=== PATIENT | female | born 1955 | race American Indian/Alaskan Native ===

== ENCOUNTER 2018-06-17 07:51 | Day surgery (SDC) | payer OTHER ==
[2018-06-17] MEDS ORDERED: ECOTRIN PO ONE (08:28)
[2018-06-17] MEDS ORDERED: NACL 0.9% 500 ML 500 ML IV SCH (09:00)
[2018-06-17 09:34] LABS: INR 1.02 (0.87-1.13)
[2018-06-17] MEDS ORDERED: NITROGLYCERIN SYRINGE 3 ML ONE (09:46)
[2018-06-17] MEDS ORDERED: XYLOCAINE 2% INFILTRATI ONE (09:46)
[2018-06-17] MEDS ORDERED: HEPARIN 10,000 UNITS/10 ML ONE (09:46)
[2018-06-17] MEDS ORDERED: CALAN ONE (09:46)
[2018-06-17] MEDS ORDERED: HEPARIN/NS 5000 UNIT/500ML(CATH LAB) 1,000 ML IR ONE (09:46)
[2018-06-17] MEDS ORDERED: SUBLIMAZE ONE (09:47)
[2018-06-17] MEDS ORDERED: VERSED ONE (09:47)
--- NOTE | 2018-06-17 11:03 | Short Stay Summary ---
Short Stay Documentation Date of service: 06/17/18 - History H&P: obtained from office - Allergies and Medications Current Medications: Allergies No Known Allergies Allergy (Verified 06/17/18 08:28) Home Medications Medication Instructions Recorded Confirmed Last Taken Type Carvedilol [Coreg] 3.125 mg PO BID 06/17/18 06/17/18 06/17/18 History 3.125mg Lisinopril/Hydrochlorothiazide 1 tab PO DAILY 06/17/18 06/17/18 06/17/18 History [Zestoretic 10-12.5 mg Tablet] 1 Spironolactone 25 mg PO DAILY 06/17/18 06/17/18 06/17/18 History 25mg Zantac 150 MG TAB 150 mg PO DAILY 06/17/18 06/17/18 06/16/18 History 150mg Active Medications Sodium Chloride (Nacl 0.9% 500 Ml) 500 mls @ 50 mls/hr IV DIRECT RY Stop: 06/17/18 18:59 Last Admin: 06/17/18 09:16 Dose: 50 mls/hr Documented by: - Brief post op/procedure progress note Date of procedure: 06/17/18 Pre-op diagnosis: chf Post-op diagnosis: same Procedure: see report Anesthesia: local Estimated blood loss: none Pathology: none - Disposition Condition at discharge: Good Disposition: [id number] TO HOME OR SELFCARE - Discharge Diagnoses (1) Cardiomyopathy Status: Acute Qualifiers: Cardiomyopathy type: ischemic Qualified Code(s): I25.5 - Ischemic c ardiomyopathy (2) CAD (coronary artery disease) Status: Acute Qualifiers: Coronary Disease-Associated Artery/Lesion type: chilkat artery [place] vs. transplanted heart: chilkat heart Associated angina: with stable angina Qualified Code(s): I25.118 - Atherosclerotic heart disease of chilkat coronary artery with other forms of angina pectoris (3) Hypertension Status: Chronic Qualifiers: Hypertension type: essential hypertension Qualified Code(s): I10 - Essential (primary) hypertension (4) Hyperlipemia, mixed Status: Chronic Short Stay Discharge Plan Activity: advance as tolerated Diet: low fat, low cholesterol, low salt Follow up with: TYLER MENDOZA MD [Primary Care Provider] - 7 Days
--- NOTE | 2018-06-17 11:21 | Cardiac Catherization Report ---
LEFT HEART CATHETERIZATION REFERRING PHYSICIAN: Candelario Busch MD CLINICAL INFORMATION: This is a 63 female with severe cardiomyopathy on echocardiogram here for left heart catheterization to rule out coronary artery disease as cause of cardiomyopathy. DESCRIPTION OF PROCEDURE: The patient was done under moderate sedation, 0.5 mg Versed and 25 mcg fentanyl. Total sedation time was 15 minutes, started at 10:29 a.m., finished at 10:44 a.m. Left heart catheterization performed in the right radial artery, sterile technique, local anesthesia, 6-Egyptian radial sheath inserted. FINDINGS: Left system engaged with JL3.5 catheter. Left main is large and patent, bifurcates to large LAD that is patent from proximally and distally with mild luminal irregularities. Diagonal 1, diagonal 2, diagonal 3 are small caliber vessels that are patent collaterals from left to right collaterals from the septal to the distal RCA. Circumflex is a medium caliber vessel, mid 80% lesion. Ramus is a small to medium caliber vessel that is patent with mild luminal irregularities. OM2 is a [id number] caliber vessel, has a proximal 50% lesion. OM3 is a small to medium caliber vessel that is patent. RCA engaged with JR4, is a large dominant vessel, proximal is patent, mid after an RV marginal branch is 100% noted. LV gram was done in TELUGU and DAVIDSON view shows severe LV dysfunction, EF 15%, LVEDP 20 mmHg, LV is 128. Aortic is 120/78. No gradient across the aortic valve on pullback. 5-Egyptian catheters were taken over guidewire, 6-Egyptian radial sheath discontinued, radial band applied. No hematoma, no bleeding. SUMMARY: Left main patent, LAD patent, circumflex mid 80% with ramus patent, OM1 80% ostial and OM2 patent. Extensive left to right collateralizations noted to the distal RCA with RCA mid 100%. The patient's coronary artery disease is out of proportion to cardiomyopathy. The patient will be treated medically first. Once EF is improved, we will consider PCI of the PORTFOLIO DIRECTOR of the RCA and circumflex. Discussed this in detail with the patient and the patient's family. JOB# [id number] DUNCAN/SYED MAX
[2018-06-17 13:02] VITALS: BP 123/70
== END 2018-06-17 13:30 | disposition home or self-care (01) ==
LOC: CATHLABREC 07:51 → CATH 07:51 → CATHLABREC 13:30
PROVIDERS: ATTEND Internal Medicine
DX: I25.10 Atherosclerotic heart disease of native coronary artery without angina pectoris (principal); I42.8 Other cardiomyopathies; F17.210 Nicotine dependence, cigarettes, uncomplicated; I10 Essential (primary) hypertension; E78.2 Mixed hyperlipidemia; M19.90 Unspecified osteoarthritis, unspecified site; Z90.49 Acquired absence of other specified parts of digestive tract; Z98.890 Other specified postprocedural states; Z79.899 Other long term (current) drug therapy; Z85.89 Personal history of malignant neoplasm of other organs and systems; Z79.01 Long term (current) use of anticoagulants
CPT/HCPCS: 36415; 85610; 85730; 93005; 93010; 93458; 99156; C1894; J1644; J2250; J3010; J7040; Q9967

== ENCOUNTER 2018-07-03 17:28 | Inpatient (IN) | payer OTHER ==
--- NOTE | 2018-07-03 21:36 | Emergency Department Report ---
ED Neuro Deficit HPI - General Chief Complaint: Dizziness Stated Complaint: WEAKNESS/DIZZY Time Seen by Provider: 07/03/18 21:01 Source: patient, EMS (ems notes not available at time of chart dictation), RN notes reviewed, old records reviewed Mode of arrival: Stretcher Limitations: No Limitations - History of Present Illness Initial Comments: Primary care Dr.: Dr. Louis Cardiology: Dr Niall Willams Past medical history: Multivessel ischemic cardiac myopathy, history of left- sided breast cancer, premature ventricular contractions, hypertension, high cholesterol, mitral and tricuspid regurg This is a 63-year-old female who is not known to this provider previously. Patient reports being in her usual state of health today, when after lunch, she develops diaphoresis, lightheadedness, sensation of being unsteady, and generalized weakness. This was a painless event, did not radiate anywhere, lasted for around 30 minutes, and is now resolved. She had a cardiac catheterization last month, and recalls reading discharge instructions which recommended immediate medical evaluation if she experienced diaphoresis. She therefore presents to the emergency room. All of her symptoms are now resolved, and she denies complaints. She denies new or different shortness of breath, leg pain, leg swelling, hematemesis, bright red blood per rectum. -: Sudden Location: ataxia Presenting Symptoms: Absent: Weak/Paralyzed One Side, Sudden, Severe Headache, Blurred/Loss of Vision, Facial Droop/Numbness, Unable to Speak Clearly, Altered Mental Status History of same: No Place: outdoors Severity: moderate Quality: weak Improves With: none Worsens With: none On Anticoagulants: No Context: sudden onset Associated Symptoms: diaphoresis, malise, weakness - Related Data Home Medications: Home Medications Medication Instructions Recorded Confirmed Last Taken Carvedilol [Coreg] 3.125 mg PO BID 06/17/18 06/17/18 06/17/18 3.125mg Lisinopril/Hydrochlorothiazide 1 tab PO DAILY 06/17/18 06/17/18 06/17/18 [Zestoretic 10-12.5 mg Tablet] 1 Spironolactone 25 mg PO DAILY 06/17/18 06/17/18 06/17/18 25mg Zantac 150 MG TAB 150 mg PO DAILY 06/17/18 06/17/18 06/16/18 150mg Allergies/Adverse Reactions: Allergies Allergy/AdvReac Type Severity Reaction Status Date / Time No Known Allergies Allergy Verified 07/03/18 18:01 ED Review of Systems ROS: Stated complaint: WEAKNESS/DIZZY Other details as noted in HPI Constitutional: diaphoresis, malaise. denies: fever Eyes: denies: vision change ENT: denies: epistaxis Respiratory: denies: cough Cardiovascular: other. denies: chest pain Gastrointestinal: denies: abdominal pain, nausea, vomiting, hematemesis, melena, hematochezia Genitourinary: denies: dysuria Musculoskeletal: denies: back pain Skin: denies: lesions Neurological: abnormal gait. denies: headache Psychiatric: denies: anxiety ED Past Medical Hx - Past Medical History Hx Hypertension: Yes Hx Arthritis: Yes - Surgical History Hx Cholecystectomy: Yes - Social History Smoking Status: Current Every Day Smoker Substance Use Type: None - Medications Home Medications: Home Medications Medication Instructions Recorded Confirmed Last Taken Type Carvedilol [Coreg] 3.125 mg PO BID 06/17/18 06/17/18 06/17/18 History 3.125mg Lisinopril/Hydrochlorothiazide 1 tab PO DAILY 06/17/18 06/17/18 06/17/18 History [Zestoretic 10-12.5 mg Tablet] 1 Spironolactone 25 mg PO DAILY 06/17/18 06/17/18 06/17/18 History 25mg Zantac 150 MG TAB 150 mg PO DAILY 06/17/18 06/17/18 06/16/18 History 150mg ED Neuro Physical Exam - General Limitations: No Limitations General appearance: alert, in no apparent distress Suspected Stroke: No - Head Head exam: Present: atraumatic, normocephalic - Eye Eye exam: Present: normal appearance, PERRL, EOMI, other (visual acuity intact to finger counting, color perception, reading at a close distance). Absent: nystagmus - ENT ENT exam: Present: normal exam, normal orophraynx, mucous membranes moist, normal external ear exam - Neck Neck exam: Present: normal inspection, full ROM. Absent: tenderness, meningismus - Respiratory Respiratory exam: Present: normal lung sounds bilaterally. Absent: respiratory distress - Cardiovascular Cardiovascular Exam: Present: regular rate, normal rhythm, normal heart sounds. Absent: bradycardia, tachycardia, irregular rhythm, systolic murmur, diastolic murmur, rubs, gallop - GI/Abdominal GI/Abdominal exam: Present: soft, normal bowel sounds. Absent: distended, tenderness, guarding, rebound, rigid - Extremities Exam Extremities exam: Present: normal inspection, full ROM, normal capillary refill, other (2+ pulses noted in the bilateral upper, lower extremities. Compartments soft. No long bony tenderness. The pelvis is stable.). Absent: pedal edema, joint swelling, calf tenderness - Back Exam Back exam: Present: normal inspection, full ROM. Absent: tenderness, CVA tenderness (R), paraspinal tenderness, vertebral tenderness - Neurological Exam Neurological exam: Present: alert, oriented X3, CN II-XII intact, normal gait, other (Extraocular movements intact. Tongue midline. No facial droop. Facial sensation intact to light touch in the V1, V2, V3 distribution bilaterally. 5 and 5 strength in 4 extremities.. Sensation is intact to light touch in 4 ext remities.). Absent: motor sensory deficit - NIHSS Assessment Interval: Baseline 1a. Level of Consciousness: alert/keenly responsive 1b. LOC Questions: answers both correctly 1c. LOC Commands: performs tasks correctly 2. Best Gaze: normal 3. Visual: no visual loss 4. Facial Palsy: normal symmetrical movement 5b. Motor Arm Right: no drift 5a. Motor Arm Left: no drift 6a. Motor Leg Left: no drift 6b. Motor Leg Right: no drift 7. Limb Ataxia: absent 8. Sensory: normal 9. Best Language: no aphasia 10. Dysarthria: normal 11. Extinction/Inattention: no abnormality Total Score: 0 Stroke Severity: No Stroke Symptoms - Psychiatric Psychiatric exam: Present: normal affect, normal mood - Skin Skin exam: Present: warm, dry, intact, normal color. Absent: rash ED Course Vital Signs 07/03/18 07/03/18 07/03/18 19:40 21:49 22:00 Temperature 97.5 F L Pulse Rate 74 96 H 89 Respiratory 16 16 19 Rate Blood Pressure 120/80 Blood Pressure 129/77 [Right] O2 Sat by Pulse 98 98 Oximetry 07/03/18 07/03/18 07/03/18 22:16 22:30 22:46 Temperature Pulse Rate 87 86 87 Respiratory 16 18 14 Rate Blood Pressure 120/80 120/80 120/80 Blood Pressure [Right] O2 Sat by Pulse 97 96 97 Oximetry - Lab Data Result diagrams: 07/03/18 21:24 07/03/18 21:24 Lab Results 07/03/18 07/03/18 07/03/18 Range/Units 21:24 21:24 21:24 WBC 9.1 (4.5-11.0) K/mm3 RBC 5.41 H (3.65-5.03) M/mm3 Hgb 14.4 H (10.1-14.3) gm/dl Hct 44.7 H (30.3-42.9) % MCV 83 (79-97) fl MCH 27 L (28-32) pg MCHC 32 (30-34) % RDW 17.6 H (13.2-15.2) % Plt Count 232 (140-440) K/mm3 Lymph % (Auto) 24.5 (13.4-35.0) % Robertson % (Auto) 4.4 (0.0-7.3) % Eos % (Auto) 0.7 (0.0-4.3) % Baso % (Auto) 1.5 (0.0-1.8) % Lymph # 2.2 (1.2-5.4) K/mm3 Robertson # 0.4 (0.0-0.8) K/mm3 Eos # 0.1 (0.0-0.4) K/mm3 Baso # 0.1 (0.0-0.1) K/mm3 Seg Neutrophils % 68.9 (40.0-70.0) % Seg Neutrophils # 6.3 (1.8-7.7) K/mm3 PT 13.3 (12.2-14.9) Sec. INR 0.95 (0.87-1.13) APTT 30.5 (24.2-36.6) Sec. Sodium 139 (137-145) mmol/L Potassium 4.5 (3.6-5.0) mmol/L Chloride 99.0 (98-107) mmol/L Carbon Dioxide 23 (22-30) mmol/L Anion Gap 22 mmol/L BUN 9 (7-17) mg/dL Creatinine 0.5 L (0.7-1.2) mg/dL Estimated GFR > 60 ml/min BUN/Creatinine Ratio 18 % Glucose 146 H (65-100) mg/dL Calcium 9.9 (8.4-10.2) mg/dL Magnesium (1.7-2.3) mg/dL Total Bilirubin 0.40 (0.1-1.2) mg/dL AST 16 (5-40) units/L ALT 13 (7-56) units/L Alkaline Phosphatase 73 (35-129) units/L Troponin T < 0.010 (0.00-0.029) ng/mL NT-Pro-B Natriuret Pep (0-900) pg/mL Total Protein 7.7 (6.3-8.2) g/dL Albumin 4.6 (3.9-5) g/dL Albumin/Globulin Ratio 1.5 % Urine Color (Yellow) Urine Turbidity (Clear) Urine pH (5.0-7.0) Ur Specific Franklin (1.003-1.030) Urine Protein (Negative) mg/dL Urine Glucose (UA) (Negative) mg/dL Urine Ketones (Negative) mg/dL Urine Blood (Negative) Urine Nitrite (Negative) Urine Bilirubin (Negative) Urine Urobilinogen (<2.0) mg/dL Ur Leukocyte Esterase (Negative) Urine WBC (Auto) (0.0-6.0) /HPF Urine RBC (Auto) (0.0-6.0) /HPF Urine Mucus /HPF 07/03/18 07/03/18 07/03/18 Range/Units 21:24 21:24 21:51 WBC (4.5-11.0) K/mm3 RBC (3.65-5.03) M/mm3 Hgb (10.1-14.3) gm/dl Hct (30.3-42.9) % MCV (79-97) fl MCH (28-32) pg MCHC (30-34) % RDW (13.2-15.2) % Plt Count (140-440) K/mm3 Lymph % (Auto) (13.4-35.0) % Robertson % (Auto) (0.0-7.3) % Eos % (Auto) (0.0-4.3) % Baso % (Auto) (0.0-1.8) % Lymph # (1.2-5.4) K/mm3 Robertson # (0.0-0.8) K/mm3 Eos # (0.0-0.4) K/mm3 Baso # (0.0-0.1) K/mm3 Seg Neutrophils % (40.0-70.0) % Seg Neutrophils # (1.8-7.7) K/mm3 PT (12.2-14.9) Sec. INR (0.87-1.13) APTT (24.2-36.6) Sec. Sodium (137-145) mmol/L Potassium (3.6-5.0) mmol/L Chloride (98-107) mmol/L Carbon Dioxide (22-30) mmol/L Anion Gap mmol/L BUN (7-17) mg/dL Creatinine (0.7-1.2) mg/dL Estimated GFR ml/min BUN/Creatinine Ratio % Glucose (65-100) mg/dL Calcium (8.4-10.2) mg/dL Magnesium 1.90 (1.7-2.3) mg/dL Total Bilirubin (0.1-1.2) mg/dL AST (5-40) units/L ALT (7-56) units/L Alkaline Phosphatase (35-129) units/L Troponin T (0.00-0.029) ng/mL NT-Pro-B Natriuret Pep 4149 H (0-900) pg/mL Total Protein (6.3-8.2) g/dL Albumin (3.9-5) g/dL Albumin/Globulin Ratio % Urine Color Yellow (Yellow) Urine Turbidity Clear (Clear) Urine pH 5.0 (5.0-7.0) Ur Specific Franklin 1.010 (1.003-1.030) Urine Protein 100 mg/dl (Negative) mg/dL Urine Glucose (UA) Neg (Negative) mg/dL Urine Ketones Neg (Negative) mg/dL Urine Blood Neg (Negative) Urine Nitrite Neg (Negative) Urine Bilirubin Neg (Negative) Urine Urobilinogen < 2.0 (<2.0) mg/dL Ur Leukocyte Esterase Neg (Negative) Urine WBC (Auto) < 1.0 (0.0-6.0) /HPF Urine RBC (Auto) 3.0 (0.0-6.0) /HPF Urine Mucus Few /HPF - EKG Data -: EKG Interpreted by In EKG shows normal: sinus rhythm Rate: normal When compared to previous EKG there are: no significant change 07/03/18 23:15 EKG abnormal, but unchanged from prior EKG. Sinus rhythm, borderline left axis deviation, QTC prolonged, multiple inverted T-wave abnormalities, atrial enlargement, abnormal EKG, not consistent with ST elevation myocardial infarction, unchanged from prior EKG from 06/17/2018 - Radiology Data Radiology results: report reviewed, image reviewed Noncontrast CT scan of the brain is negative for acute disease. X-ray of the chest was negative for acute disease. - Medical Decision Making Differential diagnoses, including not limited to: Orthostasis, vagal event, st ructural cardiac disease, arrhythmia, electrolyte derangement, transient ischemic attack Assessment and plan: 63-year-old female with orthostasis, lightheadedness, diaphoresis, near syncope, now resolved. Most likely secondary to her underlying structural cardiac disease. Most likely an arrhythmia, although TIA cannot be excluded. No arrhythmias noted thus far while in the emergency room. Screening laboratory studies, EKG unremarkable, unchanged from prior. ProBNP was sent prior to my evaluation, based off of history and physical, I do not suspect acute congestive heart failure, and does not believe the patient requires emergent diuresis currently. not a TPA candidate as the patient has an NIH score of 0. Therefore, does not require emergent CT angiogram of the head and neck. Low risk by well's criteria, not tachycardic, not hypoxic. Doubt pulmonary embolus. Recommended to patient admission to the hospital for TIA workup, and she verbalized understanding. Case presented to the Hospital physician, Dr. Riaz Fraga who has accepted the patient to the medical service. - Core Measures Measure Exclusions: not indicated - Thrombolytic Inclusion/Exclusion Thrombolytic Exclusion Criteria: Symptom Onset > 3 Hours Thrombolytic Contraindications: Rapidily Improving s/s Critical care attestation.: If time is entered above; I have spent that time in minutes in the direct care of this critically ill patient, excluding procedure time. ED Disposition Clinical Impression: Cardiomyopathy, CAD (coronary artery disease), Near syncope Disposition: OP ADMIT IP TO THIS HOSP Is pt being admited?: Yes Does the pt Need Aspirin: Yes Condition: Stable Referrals: DEVI HUYNH MD [Primary Care Provider] - 3-5 Days
[2018-07-03 21:40] LABS: Basophils # (Auto) 0.1 K/mm3 (0.0-0.1); Basophils % (Auto) 1.5 % (0.0-1.8); Eosinophils # (Auto) 0.1 K/mm3 (0.0-0.4); Eosinophils % (Auto) 0.7 % (0.0-4.3); Hematocrit 44.7 % (30.3-42.9); Hemoglobin 14.4 gm/dl (10.1-14.3); Lymphocytes # (Auto) 2.2 K/mm3 (1.2-5.4); Lymphocytes % (Auto) 24.5 % (13.4-35.0); Mean Corpuscular HGB Conc 32 % (30-34); Mean Corpuscular Volume 83 fl (79-97); Monocytes # (Auto) 0.4 K/mm3 (0.0-0.8); Monocytes % (Auto) 4.4 % (0.0-7.3); Platelet Count 232 K/mm3 (140-440); Red Blood Count 5.41 M/mm3 (3.65-5.03); Red Cell Distribution Width 17.6 % (13.2-15.2)
[2018-07-03 21:54] LABS: INR 0.95 (0.87-1.13)
[2018-07-03 21:55] LABS: Partial Thromboplastin Time 30.5 Sec. (24.2-36.6)
[2018-07-03 22:16] LABS: Bilirubin,Urine NEG (Negative); Blood,Urine NEG (Negative); Color,Urine Yellow (Yellow); Mucus,Urine FEW /HPF; Urobilinogen,Urine < 2.0 mg/dL (<2.0); WBC,Urine < 1.0 /HPF (0.0-6.0)
[2018-07-03 22:20] LABS: Alanine Aminotransferase 13 units/L (7-56); Albumin 4.6 g/dL (3.9-5); BUN/Creatinine Ratio 18; Blood Urea Nitrogen 9 mg/dL (7-17); Calcium 9.9 mg/dL (8.4-10.2); Hemolysis Index 10
--- NOTE | 2018-07-03 22:50 | XRay Report ---
PROCEDURE: XR CHEST ROUTINE 2V HISTORY: dizziness FINDINGS: Frontal and lateral views of the chest were acquired. There is cardiomegaly. There is no ev idence of congestive heart failure. There is no consolidative pulmonary infiltrate. The pulmonary vas culature is within normal limits. There are multiple surgical clips in the left axilla. IMPRESSION: Cardiomegaly No consolidative infiltrate This document is electronically signed by Mulugeta Bauman MD., July 03 2018 10:48:08 PM ET
--- NOTE | 2018-07-03 22:58 | Cat Scan Report ---
PROCEDURE: CT HEAD/BRAIN WO CON TECHNIQUE: Computerized tomography of the head was performed without contrast material. CT DOSE LENGTH PRODUCT: mGycm HISTORY: dizzy resolved ataxia COMPARISONS: None . FINDINGS: Skull and scalp: Normal . Paranasal sinuses: Normal . Ventricles and subarachnoid spaces: Normal . Cerebrum: No evidence of hemorrhage, acute infarction or mass . Cerebellum and brainstem: No evidence of hemorrhage, acute infarction or mass . There is an old lacu mary infarct defect in the right cerebellar hemisphere. There is an old lacunar infarct defect in the right putamen. Vasculature: Normal . IMPRESSION: There is no acute abnormality. . This document is electronically signed by Ej Anan MD., July 03 2018 10:55:26 PM ET
[2018-07-03] MEDS ORDERED: BABY ASPIRIN PO ONE (23:18)
[2018-07-04] MEDS ORDERED: ZOFRAN IV PRN (00:09)
[2018-07-04] MEDS ORDERED: TYLENOL PO PRN (00:09)
[2018-07-04 01:38] LABS: Creatine Kinase MB 2.4 ng/mL (0.0-4.0)
[2018-07-04 06:37] LABS: Creatine Kinase MB 2.3 ng/mL (0.0-4.0)
--- NOTE | 2018-07-04 09:06 | History and Physical Report ---
CHIEF COMPLAINT: Dizziness. Other complaints include unsteady gait and weakness. HISTORY OF PRESENTING ILLNESS: The patient is a 63-year-old female who started feeling dizzy at home. There was associated diaphoresis and the patient also noted unsteady gait while she was trying to walk around. There was no history of chest pain, no history of shortness of breath, fever, or chills. Also no history of nausea or vomiting and the patient presented for evaluation. PAST MEDICAL HISTORY: Pertinent for hypertension, arthritis. PAST SURGICAL HISTORY: Pertinent for cholecystectomy. FAMILY HISTORY: Noncontributory. SOCIAL HISTORY: The patient smokes cigarettes, does not drink alcohol, and does not use illicit drugs. MEDICATIONS: The patient is on carvedilol 3.125 mg by mouth twice daily, Zestoretic 10/12.5 mg 1 by mouth daily, spironolactone 25 mg by mouth daily, and Zantac 150 mg by mouth daily. ALLERGIES: There are no known drug allergies. REVIEW OF SYSTEMS: CONSTITUTIONAL: There is no fever, no chills, diaphoresis is present. HEENT: There is no headache or sore throat. CARDIOVASCULAR: There is no chest pain or orthopnea. RESPIRATORY: There is no shortness of breath or cough. GASTROINTESTINAL: There is no nausea; no vomiting; no abdominal pain, diarrhea, or constipation. NEUROLOGICAL: Dizziness is present, unsteady gait is present. No altered mental status. MUSCULOSKELETAL: There is no joint pain or swelling. DERMATOLOGICAL: There is no skin rash or itching. GENITOURINARY: There is no dysuria, hematuria, or flank pain. Rest of system review is normal. PHYSICAL EXAMINATION: GENERAL: At the time of exam, the patient was found to be alert and oriented x 3, and not in acute distress. VITAL SIGNS: At the initial time of presentation show temperature of 97.5 degrees Fahrenheit, pulse of 74, respirations 16, blood pressure 129/77, O2 sat of 98% on room air. HEENT: Exam shows pupils to be equal, round, reactive to light, and accommodation. Extraocular muscles are intact. NECK: Supple with no JVD or carotid bruit. CARDIOVASCULAR: Show normal first and second heart sounds with no gallops or murmurs. RESPIRATORY: Show good air entry on both sides of the lungs with no abnormal breath sounds. GASTROINTESTINAL: Show abdomen to be full, soft, and nontender with no organomegaly or rigidity. NEUROLOGICAL: Shows no focal deficit. MUSCULOSKELETAL: Show no joint swelling or tenderness. DERMATOLOGICAL: Show no skin rash. GENITOURINARY: Showing no costovertebral angle tenderness. PERTINENT LABORATORY AND IMAGING STUDIES: The patient had CT of the head without contrast done that was normal and also had chest x-ray done, which shows cardiomegaly only with no evidence of infiltrate or pneumonia. DIAGNOSIS: Transient ischemic attack. PLAN OF CARE: 1. The patient will be admitted to Telemetry. 2. The patient will have MRI of the brain without contrast done this morning and will have bilateral carotid Doppler also done this morning. 3. The patient will have 2D echo done this morning. 4. The patient's DVT prophylaxis will be through sequential compressive device. 5. The patient will have serial cardiac enzymes involving troponin, total CK, and CK-MB checked q. 6 hours x 2 more levels. 6. The patient will be on aspirin 325 mg by mouth daily and on p.r.n. medications like Tylenol 650 mg by mouth every 4 hours for fever and headache; and Zofran IV 4 mg every 8 hours for nausea and vomiting. 7. The patient will be on her home medications as shown in the medication reconciliation section. JOB# [id number] OCN/NTS
[2018-07-04] MEDS: HCTZ PO SCH (09:46)
[2018-07-04] MEDS: PEPCID PO SCH ×2 (09:46→21:39)
[2018-07-04] MEDS: ALDACTONE PO SCH (09:47)
[2018-07-04] MEDS: ZESTRIL PO SCH (09:47)
[2018-07-04] MEDS: ASPIRIN PO SCH (09:47)
[2018-07-04] MEDS: COREG PO SCH ×2 (09:48→21:39)
--- NOTE | 2018-07-04 10:52 | Vascular Lab Report ---
EXAM: VL CAROTID DUPLEX BILAT HISTORY: TIA TECHNIQUE: The carotid arteries and vertebral arteries were interrogated with a high-frequency linear transducer, employing grayscale imaging, duplex Doppler and color flow Doppler imaging. COMPARISON: None available. FINDINGS: The common carotid arteries and carotid bulbs appear widely patent on grayscale imaging. There is no significant mural plaque formation in the carotid bulb and no critical luminal narrowing is seen. Carotid velocities are as follows: RIGHT LEFT Distal CCA: 69.8 cm/s 67.6 cm/s Proximal ICA: 76.4 cm/s 85.0 cm/s ICA/CCA ratio: 0.97 1.11 The above findings constitute no discernible or hemodynamically significant ICA origin stenosis. There is no hemodynamically significant ECA stenosis. Both vertebral arteries are patent and demonstrate antegrade blood flow and normal Doppler waveforms. IMPRESSION: 1. Unremarkable bilateral carotid Doppler ultrasound. 2. No discernible or hemodynamically significant ICA or ECA stenosis. 3. Patent vertebral arteries with antegrade blood flow. This document is electronically signed by Nick Hardy MD., July 04 2018 10:49:40 AM ET
[2018-07-05] MEDS: ALDACTONE PO SCH (10:07)
[2018-07-05] MEDS: COREG PO SCH (10:07)
[2018-07-05] MEDS: ZESTRIL PO SCH (10:07)
[2018-07-05] MEDS: HCTZ PO SCH (10:07)
[2018-07-05] MEDS: ASPIRIN PO SCH (10:07)
[2018-07-05] MEDS: PEPCID PO SCH (10:07)
--- NOTE | 2018-07-05 14:58 | Discharge Summary ---
Providers - Providers Date of Admission: 07/03/18 23:18 Date of discharge: 07/05/18 Attending physician: GEOVANNY KENNEDY 07/04/18 06:00 Physical Therapy Evaluation and Treat [CONS] Routine Comment: Reason For Exam: TIA WITH UNSTEADY GAIT Primary care physician: DEVI HUYNH Hospitalization Condition: Stable Hospital course: TIA resolved-w/u negative HTN cont antihypertensives CHF Cont Lasix Disposition: DC-01 TO HOME OR SELFCARE Core Measure Documentation - Palliative Care Palliative Care/ Comfort Measures: Not Applicable - Core Measures Any of the following diagnoses?: none Exam - Constitutional Vitals: Temp Pulse Resp BP Pulse Ox 98.6 F 80 16 108/74 93 07/05/18 09:13 07/05/18 09:13 07/05/18 09:13 07/05/18 09:13 07/05/18 09:13 General appearance: Present: no acute distress, well-nourished - EENT Eyes: Present: PERRL ENT: hearing intact, clear oral mucosa - Neck Neck: Present: supple, normal ROM - Respiratory Respiratory effort: normal Respiratory: bilateral: CTA - Cardiovascular Heart rate: 78 Rhythm: regular Heart Sounds: Present: S1 & S2. Absent: rub, click - Extremities Extremities: pulses symmetrical, No edema Peripheral Pulses: within normal limits - Abdominal General gastrointestinal: Present: soft, non-tender, non-distended, normal bowel sounds Female genitourinary: Present: normal - Rectal Rectal Exam: deferred - Integumentary Integumentary: Present: clear, warm, dry - Musculoskeletal Musculoskeletal: gait normal, strength equal bilaterally - Psychiatric Psychiatric: appropriate mood/affect, intact judgment & insight - Neurologic Neurologic: CNII-XII intact, moves all extremities Plan Activity: no restrictions Diet: low fat, low cholesterol, low salt Follow up with: DEVI HUYNH MD [Primary Care Provider] - 3-5 Days MARGOTH CAMPOS MD [Staff Physician] - 7 Days
[2018-07-05 15:16] VITALS: BP 100/65
== END 2018-07-05 17:10 | disposition home or self-care (01) | DRG 69 ==
LOC: ED 17:28 → 4A 23:18
PROVIDERS: ADMIT Internal Medicine; ATTEND Internal Medicine
DX: G45.9 Transient cerebral ischemic attack, unspecified (principal); I25.10 Atherosclerotic heart disease of native coronary artery without angina pectoris; R55 Syncope and collapse; I11.0 Hypertensive heart disease with heart failure; I50.9 Heart failure, unspecified; I25.5 Ischemic cardiomyopathy; M19.90 Unspecified osteoarthritis, unspecified site; R26.81 Unsteadiness on feet; F17.210 Nicotine dependence, cigarettes, uncomplicated; Z85.3 Personal history of malignant neoplasm of breast; Z79.899 Other long term (current) drug therapy; Z90.49 Acquired absence of other specified parts of digestive tract
CPT/HCPCS: 36415; 70450; 71046; 80053; 81001; 82550; 82553; 83735; 83880; 84484; 85025; 85610; 85730; 93005; 93010; 93306; 93880; G0378

== ENCOUNTER 2019-02-18 09:34 | Observation (INO) | payer OTHER ==
[2019-02-18 10:24] LABS: Basophils # (Auto) 0.1 K/mm3 (0.0-0.1); Eosinophils # (Auto) 0.2 K/mm3 (0.0-0.4); Eosinophils % (Auto) 3.1 % (0.0-4.3); Hematocrit 40.2 % (30.3-42.9); Hemoglobin 13.3 gm/dl (10.1-14.3); Lymphocytes # (Auto) 1.9 K/mm3 (1.2-5.4); Lymphocytes % (Auto) 30.6 % (13.4-35.0); Mean Corpuscular HGB Conc 33 % (30-34); Mean Corpuscular Volume 92 fl (79-97); Monocytes # (Auto) 0.5 K/mm3 (0.0-0.8); Monocytes % (Auto) 8.3 % (0.0-7.3); Platelet Count 210 K/mm3 (140-440); Red Blood Count 4.39 M/mm3 (3.65-5.03); Red Cell Distribution Width 14.2 % (13.2-15.2)
[2019-02-18] MEDS ORDERED: SODIUM CHLORIDE IRRI 1000 ML 1,000 ML, .VANCOMYCIN VIAL 1,000 MG IR ONE (10:30)
[2019-02-18 10:36] LABS: BUN/Creatinine Ratio 12; Blood Urea Nitrogen 7 mg/dL (7-17); Calcium 9.4 mg/dL (8.4-10.2); Hemolysis Index 13
[2019-02-18 10:43] LABS: Partial Thromboplastin Time 38.2 Sec. (24.2-36.6)
[2019-02-18] MEDS: SODIUM CHLORIDE 0.45% 1000 ML 1,000 ML IV SCH ×2 (11:00→12:20)
--- NOTE | 2019-02-18 11:12 | History and Physical Report ---
History of Present Illness Date of examination: 02/18/19 Date of admission: 02/18/2019 Chief complaint: elective AICD implantation History of present illness: The pt is a 63-year-old female with a past medical history of a dilated cardiomyopathy, coronary artery disease, HFrEF EF 15-20%, hypertension, occasional tobacco use who presents today for scheduled elective AICD implantation. She has no current complaints. Past History Past Medical History: other (as per HPI) Medications and Allergies Allergies Allergy/AdvReac Type Severity Reaction Status Date / Time No Known Allergies Allergy Verified 07/03/18 18:01 Home Medications Medication Instructions Recorded Confirmed Last Taken Type Carvedilol [Coreg] 3.125 mg PO BID 06/17/18 02/18/19 02/17/19 History Aspirin EC [Halfprin EC] 81 mg PO QDAY #100 tablet. 07/05/18 02/18/19 02/17/19 Rx Sacubitril/Valsartan [Entresto 24 1 tab PO BID 02/17/19 02/18/19 02/17/19 History - 26 mg] Spironolactone [Aldactone] 25 mg PO DAILY 02/17/19 02/18/19 02/17/19 History clonazePAM 0.25 mg PO BID PRN 02/17/19 02/18/19 1 Month Ago History ~01/19/19 Active Meds: Active Medications Sodium Chloride (Nacl 0.45% 1000 Ml) 1,000 mls @ 50 mls/hr IV DIRECT RY Last Admin: 02/18/19 11:00 Dose: 50 mls/hr Documented by: Review of Systems All systems: negative (no complaints) Physical Examination Vital Signs Temp Pulse Resp BP Pulse Ox 98.3 F 78 18 121/68 99 02/18/19 10:26 02/18/19 10:26 02/18/19 10:26 02/18/19 10:26 02/18/19 10:26 General appearance: no acute distress HEENT: Positive: PERRL, Normocephaly, Mucus Membranes Moist Neck: Positive: neck supple, trachea midline Cardiac: Positive: Reg Rate and Rhythm, S1/S2 Lungs: Positive: clear to auscultation Neuro: Positive: Grossly Intact Abdomen: Negative: Tender Skin: Negative: Rash Musculoskeletal: No Pain Extremities: Absent: edema Results 02/18/19 10:06 02/18/19 10:06 Coagulation 02/18/19 Range/Units 10:06 PT 13.1 (12.2-14.9) Sec. INR 1.00 (0.87-1.13) APTT 38.2 H (24.2-36.6) Sec. CBC 02/18/19 Range/Units 10:06 WBC 6.2 (4.5-11.0) K/mm3 RBC 4.39 (3.65-5.03) M/mm3 Hgb 13.3 (10.1-14.3) gm/dl Hct 40.2 (30.3-42.9) % Plt Count 210 (140-440) K/mm3 Lymph # 1.9 (1.2-5.4) K/mm3 [place] # 0.5 (0.0-0.8) K/mm3 Eos # 0.2 (0.0-0.4) K/mm3 Baso # 0.1 (0.0-0.1) K/mm3 Comprehensive Metabolic Panel 02/18/19 Range/Units 10:06 Sodium 144 (137-145) mmol/L Potassium 4.7 (3.6-5.0) mmol/L Chloride 104.4 (98-107) mmol/L Carbon Dioxide 28 (22-30) mmol/L BUN 7 (7-17) mg/dL Creatinine 0.6 L (0.7-1.2) mg/dL Glucose 138 H (65-100) mg/dL Calcium 9.4 (8.4-10.2) mg/dL Assessment and Plan Proceed with scheduled elective AICD implantation. The patient has been seen in conjunction with Dr. Goff who agrees with the assessment and plan of care. - Patient Problems (1) Dilated cardiomyopathy Current Visit: Yes Status: Chronic (2) CAD (coronary artery disease) Current Visit: Yes Status: Chronic Qualifiers: (3) Hypertension Current Visit: Yes Status: Chronic Qualifiers: Hypertension type: essential hypertension Qualified Code(s): I10 - Essential (primary) hypertension (4) Hyperlipidemia Current Visit: Yes Status: Chronic (5) Tobacco use Current Visit: Yes Status: Chronic
[2019-02-18] MEDS ORDERED: LIDOCAINE (1%) 10 MG/1 ML VIAL 20 ML MDV ONE (11:49)
[2019-02-18] MEDS ORDERED: SODIUM CHLORIDE IRRI 500 ML 500 ML IR ONE (11:49)
[2019-02-18] MEDS ORDERED: BUPIVACAINE/PF (0.5%) 5 MG/1 ML 30 ML VIAL INFILTRATI ONE (11:50)
[2019-02-18] MEDS ORDERED: ceFAZolin/Water 2 GM/20 ML 2 GM/20 ML SYRINGE IV ONE (11:51)
[2019-02-18] MEDS: fentaNYL 100 MCG/2 ML INJ ONE ×2 (12:58→13:06)
[2019-02-18] MEDS: MIDAZOLAM 2 MG/2 ML INJ ONE ×2 (12:58→13:06)
[2019-02-18] MEDS ORDERED: diphenhydrAMINE 50 MG/ML VIAL ONE (13:04)
[2019-02-18] MEDS ORDERED: HYDROcodone/ACETAMINOPHEN 5-325 MG TAB PO PRN (14:39)
--- NOTE | 2019-02-18 15:52 | XRay Report ---
CHEST 1 VIEW / XR chest 1V ap INDICATION: Pacemaker Postop. COMPARISON: 07/03/2018 FINDINGS: Portable, single, frontal chest radiograph demonstrates a new left upper chest AICD with a single ventricular lead. Overall smaller heart size/cardiomediastinal silhouette and slight improved perihilar vascular prominence. Slight cardiomegaly though remains. Clear lungs without pleural effusi ons or CHF. Stable left axillary as also right upper quadrant surgical mehreen. Stable bones with sli ght thoracic levocurvature apex about T6. IMPRESSION: Interval uncomplicated left-sided pacemaker placement with overall improved heart size, a s detailed above. Please correlate. Thank you for the opportunity to participate in this patient's care. Signer Name: Vargas Florez Signed: 02/18/2019 3:47 PM Workstation Name: [id number]
[2019-02-18] MEDS: ceFAZolin/NS 1 GM/50 ML 1 GM/50 ML BAG IV SCH (21:10)
[2019-02-18] MEDS: HYDROcodone/ACETAMINOPHEN 5-325 MG TAB PO PRN (23:55)
[2019-02-19] MEDS ORDERED: TEMAZEPAM 15 MG CAP PO PRN (00:31)
[2019-02-19] MEDS: HYDROcodone/ACETAMINOPHEN 5-325 MG TAB PO PRN ×2 (04:14→10:54)
[2019-02-19] MEDS: SODIUM CHLORIDE 0.45% 1000 ML 1,000 ML IV SCH (04:15)
[2019-02-19] MEDS: ceFAZolin/NS 1 GM/50 ML 1 GM/50 ML BAG IV SCH (04:15)
[2019-02-19 08:01] VITALS: BP 137/67
--- NOTE | 2019-02-19 10:30 | Short Stay Summary ---
Short Stay Documentation Date of service: 02/19/19 - History H&P: dictated Past Medical History: other (as per HPI) - Allergies and Medications Current Medications: Allergies No Known Allergies Allergy (Verified 07/03/18 18:01) Home Medications Medication Instructions Recorded Confirmed Last Taken Type Carvedilol [Coreg] 3.125 mg PO BID 06/17/18 02/18/19 02/17/19 History Aspirin EC [Halfprin EC] 81 mg PO QDAY #100 tablet. 07/05/18 02/18/19 02/17/19 Rx Sacubitril/Valsartan [Entresto 24 1 tab PO BID 02/17/19 02/18/19 02/17/19 History - 26 mg] Spironolactone [Aldactone] 25 mg PO DAILY 02/17/19 02/18/19 02/17/19 History clonazePAM 0.25 mg PO BID PRN 02/17/19 02/18/19 1 Month Ago History ~01/19/19 Active Medications Acetaminophen/Hydrocodone Bitart (Salt[place] 5/325) 1 each PO Q4H PRN PRN Reason: Pain, Moderate (4-6) Last Admin: 02/19/19 04:14 Dose: 1 each Documented by: Sodium Chloride (Nacl 0.45% 1000 Ml) 1,000 mls @ 50 mls/hr IV DIRECT RY Last Admin: 02/19/19 04:15 Dose: 50 mls/hr Documented by: Temazepam (Restoril) 15 mg PO QHS PRN PRN Reason: Sleep - Physical exam General appearance: no acute distress Integumentary: no rash, no growths, no abnormal pigmentation, other (left pectoralis AICD implantation site pressure dressing removed, site covered with t elfa and tegaderm dressing, minimal amount of old bleeding noted on telfa, no current bleeding or hematoma noted) HEENT: Atraumatic, PERRLA Lungs: Clear to auscultation Heart: Regular rate, Normal S1, Normal S2 Gastrointestinal: normal, normoactive bowel sounds Extremities: no ischemia, pulses intact, pulses symmetrical Neurological: Normal gait, Normal speech, Strength at 5/5 X4 ext - Brief post op/procedure progress note Date of procedure: 02/18/19 Pre-op diagnosis: CMP Post-op diagnosis: same Procedure: AICD implantation - see operative report Estimated blood loss: none Condition: stable - Hospital course Hospital course: The pt is a 63-year-old female with a past medical history of a dilated cardiomyopathy, coronary artery disease, HFrEF EF 15-20%, hypertension, occasional tobacco use who presented yesterday for scheduled elective AICD implantation and subsequently successfully underwent the procedure yesterday. She was admitted for observation overnight. She has remained clinically and hemodynamically stable throughout admission. Device interrogation this AM revealed normal device function. Post-procedure CXR with NAF. She is medically stable for discharge home today. - Disposition Condition at discharge: Good Disposition: DC-01 TO HOME OR SELFCARE - Discharge Diagnoses (1) Dilated cardiomyopathy Status: Chronic (2) CAD (coronary artery disease) Status: Chronic Qualifiers: (3) Hypertension Status: Chronic Qualifiers: Hypertension type: essential hypertension Qualified Code(s): I10 - Essential (primary) hypertension (4) Hyperlipidemia Status: Chronic (5) Tobacco use Status: Chronic (6) AICD (automatic cardioverter/defibrillator) present Status: Chronic Short Stay Discharge Plan Activity: other (as per discharge instructions) Diet: low fat, low cholesterol, low salt Wound: other (as per discharge instructions) Durable Medical Equipment Needed Upon Discharge: other (left arm immobilizer) Follow up with: TYLER MENDOZA MD [Primary Care Provider] - 7 Days MJ REESE MD [Staff Physician] - 7 Days (Post-op device clinic in [facility] [place], 03/01/2019 @ 2:30PM) JOSE GARCIA MD [Staff Physician] - 7 Days ([place] office, 03/17/2019 @ 9:30AM) Prescriptions: Carvedilol [Coreg] 3.125 mg PO BID #60 HYDROcodone/APAP 5-325 [Saltese 5-325 mg TAB] 1 each PO Q4H PRN #10 tablet PRN Reason: Pain, Moderate (4-6)
== END 2019-02-19 12:53 | disposition home or self-care (01) ==
LOC: CATHLABREC 09:34 → 4A 11:07
PROVIDERS: ADMIT Internal Medicine Cardiovascular Disease; ATTEND Internal Medicine Cardiovascular Disease
DX: I42.0 Dilated cardiomyopathy (principal); I25.10 Atherosclerotic heart disease of native coronary artery without angina pectoris; I10 Essential (primary) hypertension; T82.897A Other specified complication of cardiac prosthetic devices, implants and grafts, initial encounter; E78.5 Hyperlipidemia, unspecified; F17.200 Nicotine dependence, unspecified, uncomplicated; Z79.82 Long term (current) use of aspirin
CPT/HCPCS: 33249; 36415; 71045; 80048; 85025; 85610; 85730; 93005; 93010; 96365; 96366; C1722; C1769; C1777; C1892; G0378; J0690; J1200; J2250; J3010; J3370; J7030; Q9967